=== PATIENT | female | born 1980 | race Caucasian/White ===

== ENCOUNTER 2018-09-12 10:05 | Inpatient (IN) ==
[2018-09-12] MEDS ORDERED: Ipratropium/Albuterol Neb 3 ML IH ONE (10:14)
--- NOTE | 2018-09-12 10:35 | Emergency Department Note ---
Disposition Clinical Impression: Sepsis Pneumonia involving left lung Qualifiers: Pneumonia type: due to unspecified organism Lung location: unspecified part of lung Qualified Code(s): J18.9 - Pneumonia, unspecified organism Disposition: Admitted As Inpatient Condition: Fair Forms: ED Satisfaction Letter SOB HPI - General Chief Complaint: ED Shortness of Breath/Dyspnea Stated Complaint: SOB Time Seen by Provider: 09/12/18 10:07 Source: EMS Mode of arrival: private vehicle Limitations: no limitations Nursing Notes Reviewed: Yes Vital Signs Reviewed: Yes - History of Present Illness Pt Subjective Complaint: shortness of breath Onset (ago): hour(s) (Last night - at bedtime) Context: other (worse when woke up this AM) Severity: moderate Consistency/Duration: constant Improves with: nothing Worsens with: nothing Associated symptoms: Reports: chest pain (left anterolateral - mid), pain with inspiration (in left upper back), cough ("Infrequent, dry). Denies: fever, wheezing, sputum production, orthopnea, lower extremity pain, parasthesias, palpitations, diaphoresis, nausea/vomiting, syncope, abdominal pain Treatment prior to arrival: oxygen (per EMS) Cough present: Yes Cough Description: Involuntary, Non-Productive, Dry Cough Frequency: Intermittent Sputum production: No Sputum Amount: None - Related Data Home oxygen amount: none Home Medications Medication Instructions Recorded Confirmed FLUoxetine HCl [PROzac] 20 mg PO DAILY 05/18/16 06/05/16 Previous Rx's Medication Instructions Recorded Ibuprofen [Motrin] 600 mg PO Q6HR PRN #40 tab 06/06/16 Meloxicam [Mobic] 7.5 mg PO DAILY #10 tablet 08/12/16 traMADol [Ultram] 50 mg PO Q6HR PRN #10 tablet 08/12/16 Allergies Allergy/AdvReac Type Severity Reaction Status Date / Time No Known Allergies Allergy Verified 09/12/18 10:14 All systems ED: reviewed and negative except as stated. Review of Systems: As Per HPI Constitutional: Denies: fever, chills, weakness, weight change, night sweats Eyes: Denies: vision change ENT ED: Denies: ear pain, throat pain, congestion, dysphagia Cardiovascular: Reports: as per HPI, chest pain. Denies: palpitations, dyspnea on exertion, orthopnea, edema, syncope Respiratory: Reports: as per HPI, cough, dyspnea. Denies: wheezes, hemoptysis, stridor, sputum production Gastrointestinal: Denies: abdominal pain, nausea, vomiting, diarrhea Genitourinary: Denies: dysuria Musculoskeletal: Reports: as per HPI, back pain. Denies: neck pain, joint swelling, arthralgia Integumentary: Denies: rash Neurological: Denies: headache, weakness, confusion, abnormal gait, vertigo Hematological/Lymphatic: Denies: easy bleeding, easy bruising, lymphadenopathy Past Medical History - Past Medical History Attestation: Yes The following information was validated with the patient. Source: patient Medical history: Reports: migraine Surgical history: Reports: hysterectomy Psychiatric history: Reports: anxiety, depression STRATEGY DIRECTOR history: Reports: bilateral tubal ligation, other - Social History Smoking Status: Current every day smoker Smokeless Tobacco Status: No Alcohol use: Reports: none Drug use: Reports: none Physical Exam - General Limitations: no limitations General appearance: alert, in no apparent distress, anxious - Head Head exam: atraumatic, normocephalic, normal inspection - Eye Eye exam: Present: normal appearance. Absent: scleral icterus, conjunctival injection, periorbital swelling - ENT ENT exam: mucous membranes dry - Neck Neck exam: Present: normal inspection, full ROM, trachea midline. Absent: tenderness, meningismus, lymphadenopathy - Chest Chest inspection: Present: normal inspection. Absent: tenderness - Respiratory Respiratory exam: Present: normal lung sounds bilaterally, other (splinting - mild). Absent: respiratory distress, wheezes, stridor, accessory muscle use, prolonged expiratory phase - Cardiovascular Cardiovascular exam: Present: normal rhythm, tachycardia, normal heart sounds - Abdominal Exam Abdominal exam: Present: soft, Non-Tender. Absent: distention, guarding, rebound, rigidity, ascites, mass - Extremities Exam Extremities exam: Present: normal inspection, full ROM, normal capillary refill. Absent: pedal edema, joint swelling, calf tenderness - Back Exam Back exam: Present: normal inspection, full ROM, tenderness, paraspinal tenderness (left upper - medial to scapula). Absent: CVA tenderness (R), CVA tenderness (L), vertebral tenderness, rashes - Neurological Exam Neurological exam: Present: alert, oriented X3, CN II-XII intact - Psychiatric Psychiatric exam: Present: normal affect, anxious - Skin Skin exam: Present: warm, dry, intact, normal color Course Course Narrative: Patient presents from home for evaluation of shortness of breath. She called the squad because she was having trouble breathing and pain in the left upper back with deep inspiration. The vineyard tender reports that the patient was hyperventilating. They applied oxygen, which seemed to help. They report a heart rate in the high 120s, which improved to the high 90s, upon their arrival at the ED. Upon initial evaluation of the patient she was tachypneic and tachycardic. After talking to her a few minutes about her breathing, she was able to slow down her respiratory rate. She was assisted into a gown, vitals and EKG obtained. After the initial assessment, I went back to talk to the patient again. She was once again, tachypnea, and back in the 120s. She complained of increased pain in her left upper back and now also had pain in her ankles. On exam, she is breathing very shallow with her shoulders drawn up and her feet and toes pulled back. She is very anxious. I spent several minutes talking to her again about her breathing and she was able to calm down. The pain in her back is reproducible with palpation. She states that she also is having pain in the left side of her chest. She is not sure when that pain started, but believes it was sometime this morning. She denies fever, chills, nausea, vomiting, hemoptysis, recent calf pain or swelling, recent procedures, surgeries long car trips or air travel. She has never had a DVT or PE. No known blood dyscrasias. No family history of ACS at a young age. No known coronary artery disease. She is not on hormone replacement therapy or oral contraceptives. She does smoke. Less than one pack per day. Meds and fluids ordered. Suspect pneumon ia. She is low risk for PE per well's criteria (1.5). Case discussed with Dr. Josue Valente. He will be taking over care of this patient. Vital Signs Temperature 99.1 F 09/12/18 10:11 Pulse Rate 126 09/12/18 10:11 Respiratory Rate 22 09/12/18 10:11 Blood Pressure 100/86 09/12/18 10:11 O2 Sat by Pulse Oximetry 96 09/12/18 10:11 Temperature 99.1 F 09/12/18 10:11 Pulse Rate 126 12/02/18 10:11 Respiratory Rate 22 09/12/18 10:11 Blood Pressure 100/86 09/12/18 10:11 O2 Sat by Pulse Oximetry 96 09/12/18 10:11 Oxygen Delivery Oxygen Delivery Room Air Shortness of Breath/Dyspnea - Medical Records Medical records reviewed: Yes I reviewed the patient's medical records. - Lab Data Result diagrams: 09/12/18 11:29 09/12/18 11:29 Critical Care Time Critical Care Time: Yes Total Critical Care Time: 45 Attestation: The high probability of a clinically significant, sudden or life threatening deterioration of the respiratory and cardiovascular system(s) required my full and direct attention, intervention and personal management. The aggregate critical care time was 45 minutes. This time is in addition to time spent performing reported procedures but includes the following: x Data Review and interpretation x Patient assessment and monitoring of vital signs x Documentation x Medication orders and management Attestation Statement - Attestation Attestation: I, Josue Valente, examined this patient and my medical decision-making was reviewed with the MATHEMATICAL TECHNICIAN/PA/Advanced Practice Nurse/Resident Physician. I agree with the documented findings, disposition and treatment plan as described except to the extent set forth below. 38-year-old female presents emergency Department with concerns of acute onset shortness of breath. Patient states that it started during the night and has persisted throughout the day. Patient reports subjective fever and chills at home. She is tachycardic on initial evaluation. Patient was received in sign out at the start of my shift. CTA of the chest shows left lower lobe pneumonia. Patient meets sepsis criteria. She will be admitted to the hospitalist for further care and evaluation. Denies admission to the hospital within the past 3 months.
[2018-09-12] MEDS ORDERED: Ketorolac 15 MG/ML VIAL IM ONE (10:59)
[2018-09-12] MEDS ORDERED: *HR* LORazepam 2 MG/ML VIAL IVP ONE (10:59)
[2018-09-12] MEDS ORDERED: 0.9 % Sodium Chloride 1,000 ML IVC ONE (10:59)
[2018-09-12] MEDS ORDERED: Isovue-370 500 ML INFUS..BTL IV ONE (11:10)
[2018-09-12] MEDS ORDERED: Ketorolac 15 MG/ML VIAL IVP ONE (11:20)
[2018-09-12 11:42] LABS: Hematocrit 41.7 % (35.3-44.9); Mean Corpuscular HGB Conc 33.6 g/dL (31.6-35.5); Mean Corpuscular Hemoglobin 30.6 pg (28.0-33.3); Mean Platelet Volume 10.1 fL (9.4-12.4); Platelet Count 307 K/mcL (140-400); Red Blood Count 4.58 M/mcL (3.82-4.97); Red Cell Distribution Width 14.4 % (11.5-14.5)
[2018-09-12 11:59] LABS: Lymphocytes # 0.7 K/mcL (0.6-4.6); Monocytes # 1.4 K/mcL (0.0-1.3); Neutrophils # 33.2 K/mcL (1.6-8.9); Platelet Estimate Normal (Normal)
[2018-09-12 12:01] LABS: BUN/Creatinine Ratio 19 (6-26); Blood Urea Nitrogen 18 mg/dL (6-20); Calcium 9.4 mg/dL (8.6-10.3); Carbon Dioxide 22 mEq/L (23-29); Chloride 102 mEq/L (98-107); Glucose 99 mg/dL (70-105); Osmolality,Calculated 278 (280-300); Potassium 3.8 mEq/L (3.5-5.1); Sodium 133 mEq/L (136-145); eGFR For Non-African Americans > 60 (> 60)
[2018-09-12] MEDS ORDERED: cefTRIAXone 1,000 MG in Water for inj. (sterile) 20 ML 10 ML IVP ONE (13:06)
[2018-09-12] MEDS ORDERED: Azithromycin 500 MG in D5% in Water 250 ML IVPB STA (13:06)
[2018-09-12] MEDS ORDERED: Naloxone 0.4 MG/ML INJ IVP PRN (13:39)
--- NOTE | 2018-09-12 13:46 | Internal Med History&Physical ---
Date of Encounter: 09/12/18 Time of Encounter: 13:42 Internal Medicine - H&P: HPI Chief complaint: SOB Admitted From: Home Plans for Post Hospital Care: at Home History of present illness: Ms. Mckeon is a 38 year old female with history of questionable anxiety came to ER with complaint of shortness of breath, chest pain and left upper back with deep inspiration. Patient notices cough chills for 2-3 days and has been progressively worse. In ER patient was found to be tachypneic tachycardic with low grade temperature 99.1. Lab with white count 35.3 with left shift, mild hyponatremia 133, slight raised d-dimer therefore CT chest ordered with finding of left-sided pneumonia but no PE. Patient was highly anxious therefore 1 mg Ativan was given. Blood culture was drawn in the ER and a started Rocephin and Zithromax. Patient complained of chills nausea but denies fever headache dizziness abdominal pain urinary or bowel complaint. Past Med Surg Social Fam HX - Past Medical History Medical history: migraine Additional medical history: lower back pain Psychiatric history: anxiety, depression - Past Surgical History Surgical History: hysterectomy Additional surgical history: D & C , ABLASION. Partial hysterectomy - Social History Smoking Status: Current every day smoker Smokeless Tobacco Status: No Alcohol use: none Drug use: none Internal Medicine - H&P: Meds FLUoxetine HCl [PROzac] 20 mg PO DAILY 05/18/16 [History] Ibuprofen [Motrin] 600 mg PO Q6HR PRN #40 tab 06/06/16 [Rx] Meloxicam [Mobic] 7.5 mg PO DAILY #10 tablet 08/12/16 [Rx] traMADol [Ultram] 50 mg PO Q6HR PRN #10 tablet 08/12/16 [Rx] Allergy/AdvReac Type Severity Reaction Status Date / Time No Known Allergies Allergy Verified 09/12/18 10:14 All Systems PM: A 10-system review of systems was performed and is negative for pertinent findings except as documented above in the HPI. - Constitutional Vitals: Temp Pulse Resp BP Pulse Ox 99.1 F 124 26 117/73 98 09/12/18 10:11 09/12/18 11:33 09/12/18 11:33 09/12/18 11:33 09/12/18 11:33 Exam: General appearance: No acute distress, very sleepy but arousable as under the effect of sedating medicine Head exam: Atraumatic Eye exam: EOMI, PERRLA ENT exam: Moist oral mucosa Neck nontender, supple Respiratory exam: Crepitation left lower lobe but no wheezing. Cardiovascular exam: Tachycardia but normal rhythm. no systolic murmur Abdominal exam: Soft, nontender, nondistended, positive bowel sounds Extremities exam: No calf tenderness, no pedal edema Present: Skin-no rash, warm, dry, intact Neurological exam: CN II-XII intact, no focal deficits. No facial droop. Internal Med - H&P Results - Labs CBC & Chem 7: 09/12/18 11:29 09/12/18 11:29 Labs: Short CBC 09/12/18 Range/Units 11:29 WBC 35.3 H* (4.3-11.1) K/mcL Hgb 14.0 (11.5-15.4) g/dL Hct 41.7 (35.3-44.9) % Plt Count 307 (140-400) K/mcL Neutrophils # 33.2 H (1.6-8.9) K/mcL BMP 09/12/18 11:29 Sodium 133 L Potassium 3.8 Chloride 102 Carbon Dioxide 22 L BUN 18 Creatinine 0.96 Glucose 99 Calcium 9.4 - Impressions ITS Impressions Chest X-Ray 09/12/18 10:15 IMPRESSION: Left perihilar posterior consolidation most consistent with pneumonia. RECOMMENDATIONS: Post treatment chest radiograph to ensure resolution. D/ / Jennifer Gerard MD / Jennifer Gerard MD Interpreting Provider: Jennifer Gerard MD Chest CTA 09/12/18 11:10 IMPRESSION: No evidence of pulmonary embolism or acute pulmonary abnormality. Left lower lobe pneumonia with left reactive hilar adenopathy. D/ / aR Price MD / Ra Price MD Interpreting Provider: Ra Price MD - Assessment and plan (1) Pneumonia involving left lung Current Visit: Yes Status: Acute Assessment and plan: Highly elevated white count with SIRS but lactic acid normal. Blood culture drawn in the ER. Rocephin and Zithromax started in ER and will continue. Incentive spirometry, oxygen when necessary, DuoNeb when necessary started, overnight pulse ox. Will also consider a sputum culture Qualifiers: Pneumonia type: due to unspecified organism Lung location: unspecified part of lung Qualified Code(s): J18.9 - Pneumonia, unspecified organism (2) Leukocytosis Current Visit: Yes Status: Acute Assessment and plan: Most likely due to above. Blood in the sputum culture ordered. Continue home medicine and continue to monitor. Qualifiers: Leukocytosis type: unspecified Qualified Code(s): D72.829 - Elevated white blood cell count, unspecified (3) Smoker Current Visit: Yes Status: Acute Assessment and plan: Smoking cessation education. Nicotine patch (4) Anxiety and depression Current Visit: Yes Status: Acute Assessment and plan: No suicidal or homicidal thoughts or plan. Continue home medicine. 1 dose of Ativan given in the ER as mentioned above. (5) DVT prophylaxis Current Visit: Yes Status: Acute Assessment and plan: SCDs - Time Spent With Patient Total time spent is greater than 50% in coordination of care (as documented) at patient's floor/unit and/or counseling patient:
[2018-09-12] MEDS ORDERED: Ipratropium/Albuterol Neb 3 ML IH PRN (13:50)
[2018-09-12] MEDS ORDERED: Nicotine 14 MG PATCH.TD24 TD PRN (13:51)
[2018-09-12] MEDS ORDERED: Acetaminophen 325 MG TABLET PO ONE (22:38)
[2018-09-13 04:41] LABS: Basophils % 0.2 %; Eosinophils % 0.1 %; Immature Granulocytes % 0.9 % (0-4); Red Cell Distribution Width 14.6 % (11.5-14.5)
[2018-09-13 04:42] LABS: Basophils # 0.1 K/mcL (0.0-0.2); Hemoglobin 12.8 g/dL (11.5-15.4); Lymphocytes # 2.5 K/mcL (0.6-4.6); Mean Corpuscular HGB Conc 33.7 g/dL (31.6-35.5); Mean Platelet Volume 10.6 fL (9.4-12.4); Monocytes # 1.2 K/mcL (0.0-1.3); Monocytes % 3.8 %; Platelet Count 274 K/mcL (140-400); Red Blood Count 4.13 M/mcL (3.82-4.97)
[2018-09-13 05:04] LABS: BUN/Creatinine Ratio 22 (6-26); Blood Urea Nitrogen 21 mg/dL (6-20); Calcium 8.7 mg/dL (8.6-10.3); Carbon Dioxide 23 mEq/L (23-29); Chloride 107 mEq/L (98-107); Glucose 102 mg/dL (70-105); Osmolality,Calculated 283 (280-300); Potassium 4.2 mEq/L (3.5-5.1); Sodium 135 mEq/L (136-145); eGFR For Non-African Americans > 60 (> 60)
[2018-09-13] MEDS ORDERED: Acetaminophen 325 MG TABLET PO ONE (05:23)
[2018-09-13 05:46] LABS: Platelet Estimate Normal (Normal); Reactive Lymphocytes Present (Not Present)
--- NOTE | 2018-09-13 08:31 | Internal Med Progress Note ---
Hospitalist Progress Note - Encounter Date of Encounter: 09/13/18 Time of Encounter: 08:28 - Subjective Interval History: Patient feeling slight better and shortness of breath is still has dry cough and not able to bring up the sputum. Review of the lab with trending down white count but is still significant elevated. Complain of fatigue, tiredness and generalized weakness, cough. Denies headache dizziness chest pain abdominal pain urinary or bowel complaint - Exam Vitals: Temp Pulse Resp BP Pulse Ox 99.0 F 86 18 98/61 99 09/13/18 07:35 09/13/18 07:35 09/13/18 07:35 09/13/18 07:35 09/13/18 07:35 Exam: General appearance: No acute distress, alert awake oriented. 2 L oxygen by nasal cannula. Respiratory exam: Crepitation left lower lobe but no wheezing. Cardiovascular exam: Regular rate and rhythm no systolic murmur Abdominal exam: Soft, nontender, nondistended, positive bowel sounds Neurological exam: Grossly intact - Assessment and Plan (1) Pneumonia involving left lung Current Visit: Yes Status: Acute Assessment and Plan: Trending down white count but is still significantly elevated. On admission Highly elevated white count with SIRS but lactic acid normal. Blood culture with no growth. Rocephin and Zithromax started in ER and will continue. Incentive spirometry, oxygen when necessary, DuoNeb when necessary started, overnight pulse ox. Ordered sputum culture. Plan for discharge and 102 days if continued to improve clinically (2) Leukocytosis Current Visit: Yes Status: Acute Assessment and Plan: Most likely due to above. Continue to monitor. (3) Smoker Current Visit: Yes Status: Acute Assessment and Plan: Smoking cessation education. Nicotine patch (4) Anxiety and depression Current Visit: Yes Status: Acute Assessment and Plan: No suicidal or homicidal thoughts or plan. Today patient told that she had stopped taking fluoxetine for her depression 6 years ago and not taking any antidepressant medicine currently. (5) DVT prophylaxis Current Visit: Yes Status: Acute Assessment and Plan: SCDs. Early ambulation - Time Spent with Patient Total time spent is greater than 50% in coordination of care (as documented) at patient's floor/unit and/or counseling patient: less than 15 minutes Plan of Care Discussed with: patient Internal Medicine: Result - Labs CBC & Chem 7: 09/13/18 04:12 09/13/18 04:12 Labs: Short CBC 09/12/18 09/13/18 Range/Units 11:29 04:12 WBC 35.3 H* 31.0 H* (4.3-11.1) K/mcL Hgb 14.0 12.8 (11.5-15.4) g/dL Hct 41.7 38.0 (35.3-44.9) % Plt Count 307 274 (140-400) K/mcL Neutrophils # 33.2 H 27.0 H (1.6-8.9) K/mcL BMP 09/12/18 09/13/18 11:29 04:12 Sodium 133 L 135 L Potassium 3.8 4.2 Chloride 102 107 Carbon Dioxide 22 L 23 BUN 18 21 H Creatinine 0.96 0.95 Glucose 99 102 Calcium 9.4 8.7 - ABG Interpretation ABG results: PT/INR, D-dimer D-Dimer 593 ng/mLFEU (0-500) H 09/12/18 10:32 - Impressions Impressions Chest X-Ray 09/12/18 10:15 IMPRESSION: Left perihilar posterior consolidation most consistent with pneumonia. RECOMMENDATIONS: Post treatment chest radiograph to ensure resolution. D/ / Jennifer Gerard MD / Jennifer Gerard MD Interpreting Provider: Jennifer Gerard MD Chest CTA 09/12/18 11:10 IMPRESSION: No evidence of pulmonary embolism or acute pulmonary abnormality. Left lower lobe pneumonia with left reactive hilar adenopathy. D/ / Ra Price MD / Ra Price MD Interpreting Provider: Ra Price MD Consult Discharge Plan - Plan Referrals: NONE,PCP [Primary Care Provider] - (1) Pneumonia involving left lung Qualifiers: Pneumonia type: due to unspecified organism Lung location: unspecified part of lung Qualified Code(s): J18.9 - Pneumonia, unspecified organism (2) Leukocytosis Qualifiers: Leukocytosis type: unspecified Qualified Code(s): D72.829 - Elevated white blood cell count, unspecified
[2018-09-13] MEDS: cefTRIAXone 1,000 MG in Water for inj. (sterile) 20 ML 10 ML IVP SCH (08:41)
[2018-09-13] MEDS: Azithromycin 500 MG in D5% in Water 250 ML IVPB SCH (08:42)
[2018-09-13] MEDS: *HR* LORazepam 0.5 MG TABLET PO PRN ×2 (12:00→21:43)
[2018-09-13] MEDS ORDERED: Azithromycin 500 MG in D5% in Water 250 ML IVPB SCH (14:00)
--- NOTE | 2018-09-13 17:49 | Electrocardiograph Report ---
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
--- NOTE | 2018-09-13 17:51 | Electrocardiograph Report ---
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
[2018-09-14] MEDS ORDERED: Acetaminophen 325 MG TABLET PO PRN (03:30)
[2018-09-14 07:15] VITALS: BP 104/67
[2018-09-14 08:01] LABS: Basophils % 0.3 %; Eosinophils # 0.1 K/mcL (0.0-0.6); Eosinophils % 0.8 %; Hematocrit 35.4 % (35.3-44.9); Hemoglobin 11.6 g/dL (11.5-15.4); Immature Granulocytes % 0.6 % (0-4); Lymphocytes # 2.4 K/mcL (0.6-4.6); Lymphocytes % 16.9 %; Mean Corpuscular HGB Conc 32.8 g/dL (31.6-35.5); Mean Corpuscular Hemoglobin 30.4 pg (28.0-33.3); Mean Corpuscular Volume 92.7 fL (83.0-100.0); Mean Platelet Volume 10.8 fL (9.4-12.4); Monocytes # 0.7 K/mcL (0.0-1.3); Monocytes % 4.8 %; Platelet Count 234 K/mcL (140-400); Red Blood Count 3.82 M/mcL (3.82-4.97); Red Cell Distribution Width 14.8 % (11.5-14.5); Segmented Neutrophils % 76.6 %
[2018-09-14] MEDS: Azithromycin 500 MG in D5% in Water 250 ML IVPB SCH (08:44)
[2018-09-14] MEDS: cefTRIAXone 1,000 MG in Water for inj. (sterile) 20 ML 10 ML IVP SCH (08:45)
[2018-09-14] MEDS ORDERED: Cefdinir 300 MG CAPSULE PO SCH (09:00)
[2018-09-14] MEDS ORDERED: Azithromycin 250 MG TABLET PO SCH (09:00)
[2018-09-14] MEDS: *HR* LORazepam 0.5 MG TABLET PO PRN (11:18)
--- NOTE | 2018-09-14 14:17 | Discharge Summary ---
- NOTES TO OUTPATIENT PROVIDER Notes to Outpatient Provider: Follow-up with PCP in 2 days-follow final blood culture report, evaluate for her anxiety. Complete the antibiotic course. Albuterol 1-2 puff every 4 hours as needed Orders not resulted at time of discharge: Pending orders 09/12/18 11:29 Culture,Blood [BC] Stat 09/12/18 13:50 Bedside Spirometry Evaluation [EVAL] Routine 09/12/18 13:52 Sputum Culture [Culture,Sputum with Gram Stain] [RM] Routine 09/15/18 04:00 BMP [Basic Metabolic Panel] Routine Date of Encounter: 09/14/18 Time of Encounter: 14:16 - Discharge Diagnosis (1) Pneumonia involving left lung Priority: Primary Status: Acute Assessment and Plan: With leukocytosis. Trending down white count significantly. Patient also has clinical improvement therefore IV antibiotic stopped and will discharge patient on oral antibiotic Zithromax 250 mg daily for 2 more days and Omnicef 300 mg by mouth twice a day for 5 days On admission Highly elevated white count with SIRS but lactic acid normal. Blood culture with no growth. Rocephin and Zithromax started in ER . Qualifiers: Pneumonia type: due to unspecified organism Lung location: unspecified part of lung Qualified Code(s): J18.9 - Pneumonia, unspecified organism (2) Leukocytosis Priority: Primary Status: Acute Assessment and Plan: Most likely due to above. Trending down significantly. Qualifiers: Leukocytosis type: unspecified Qualified Code(s): D72.829 - Elevated white blood cell count, unspecified (3) Smoker Priority: Secondary Status: Acute Assessment and Plan: Smoking cessation education. Resources made available. Patient will discuss with her primary care physician (4) Anxiety and depression Priority: Secondary Status: Acute Assessment and Plan: No suicidal or homicidal thoughts or plan. patient told that she had stopped taking fluoxetine for her depression 6 years ago and not taking any antidepressant or antianxiety medicine currently. While in the hospital patient had anxiety attack got better with 1 dose of Ativan and also after nicotine patch placement. Advised to discuss with her primary care physician for further management Hospital course: Ms. Mckeon is a 38 year old female patient got admitted for shortness of breath and cough and diagnosed left lung pneumonia. IV to oral antibiotic Rocephin and Zithromax as started initially. Please see details in diagnosis section of discharge summary. At the time of discharge patient is hemodynamically and psychological stable, not requiring oxygen, ambulating well though feel tired, tolerating oral diet. Discharge discussed with: patient, nurse Time spent discussing smoking cessation with patient: 3 to 10 minutes - Time Spent with Patient Total time spent providing and/or coordinating discharge services: Less than 30 minutes - Discharge Medications Home Medications: No Known Home Drugs 09/13/18 [History] Allergies/Adverse Reactions: Allergy/AdvReac Type Severity Reaction Status Date / Time No Known Allergies Allergy Verified 09/12/18 10:14 Date of admission: 09/12/18 13:39 Primary care physician: PCP NONE Consults: 09/12/18 17:26 Consult to Nutrition [CONS] Routine Comment: Consulting Provider: NUTRITION Reason for Dietary Consult: MST Score Consult to Back Strip Machine Operator [CONS] Routine Reason for SW Consult: Patient has financial concerns about admission - Constitutional Vitals: Temp Pulse Resp BP Pulse Ox 97.6 F 88 16 104/67 100 09/14/18 10:51 09/14/18 10:51 09/14/18 10:51 09/14/18 10:51 09/14/18 10:51 Exam: General appearance: No acute distress, A&O X 3 Head exam: Atraumatic Eye exam: EOMI, PERRLA ENT exam: Moist oral mucosa Neck nontender, supple Respiratory exam: Left lower lobe crepitation-improving Cardiovascular exam: Regular rate and rhythm, no systolic murmur Abdominal exam: Soft, nontender, nondistended, positive bowel sounds Extremities exam: No calf tenderness, no pedal edema Present: Skin-no rash, warm, dry, intact Neurological exam: Grossly intact - Patient Status Disposition: Home, Self-Care Condition: Fair Overall status at discharge: patient is progressing back to baseline - Discharge Instructions Follow Up With: NONE,PCP [Primary Care Provider] - - Diet and Activity Activity: increase activity as tolerated Diet: advance to your usual diet
[2018-09-15] MEDS ORDERED: Azithromycin 250 MG TABLET PO SCH (09:00)
== END 2018-09-14 17:35 | disposition home or self-care (01) | DRG 139 ==
LOC: EMEROOARM 10:05 → 2ANU 10:05
PROVIDERS: ADMIT General Practice; ATTEND General Practice

== ENCOUNTER 2019-09-08 18:22 | Observation (INO) ==
[2019-09-08] MEDS ORDERED: methylPREDNISolone 125 MG/2 ML VIAL IVP ONE (18:41)
[2019-09-08] MEDS ORDERED: Ipratropium/Albuterol Neb 3 ML IH ONE (18:41)
[2019-09-08 18:56] LABS: Basophils # 0.1 K/mcL (0.0-0.2); Basophils % 0.6 %; Eosinophils # 0.1 K/mcL (0.0-0.6); Eosinophils % 0.7 %; Hematocrit 35.9 % (35.3-44.9); Hemoglobin 12.5 g/dL (11.5-15.4); Immature Granulocytes % 0.5 % (0-4); Lymphocytes # 1.5 K/mcL (0.6-4.6); Lymphocytes % 13.5 %; Mean Corpuscular HGB Conc 34.8 g/dL (31.6-35.5); Mean Corpuscular Hemoglobin 32.6 pg (28.0-33.3); Mean Corpuscular Volume 93.5 fL (83.0-100.0); Mean Platelet Volume 10.4 fL (9.4-12.4); Monocytes # 0.4 K/mcL (0.0-1.3); Monocytes % 3.2 %; Platelet Count 346 K/mcL (140-400); Red Blood Count 3.84 M/mcL (3.82-4.97); Red Cell Distribution Width 14.6 % (11.5-14.5); Segmented Neutrophils % 81.5 %
[2019-09-08] MEDS ORDERED: Isovue-370 500 ML BOTTLE IVP ONE (19:17)
[2019-09-08 19:22] LABS: BUN/Creatinine Ratio 11 (6-26); Blood Urea Nitrogen 10 mg/dL (6-20); Calcium 8.8 mg/dL (8.6-10.3); Carbon Dioxide 21 mEq/L (23-29); Chloride 110 mEq/L (98-107); Glucose 120 mg/dL (70-105); Osmolality,Calculated 290 (280-300); Sodium 140 mEq/L (136-145); Troponin I < 0.03 ng/mL (< 0.04); eGFR For African Americans > 60 (> 60); eGFR For Non-African Americans > 60 (> 60)
[2019-09-08] MEDS ORDERED: Furosemide 40 MG in 0.9 % Sodium Chloride 50 ML IV STA (21:19)
[2019-09-08] MEDS ORDERED: Furosemide 40 MG/4 ML VIAL IVP ONE (21:35)
[2019-09-08 21:43] LABS: ABG Base Excess -1 mEq/L (-2 to 3); ABG HCO3 23 mEq/L (21-27); ABG Oxygen Saturation 82 % (95-98); ABG PCO2 34 mmHg (35-45); ABG PH 7.43 pH Units (7.32-7.45); ABG PO2 45 mmHg (85-104); ABG TCO2 24 mEq/L (20-26)
[2019-09-08 22:46] LABS: Bilirubin,Urine Negative (Negative); Blood,Urine Negative (Negative); Clarity,Urine Clear (Clear); Color,Urine Yellow (Yellow); Glucose,Urine (UA) Normal (Normal); Ketones,Urine Negative (Negative); Leukocyte Esterase,Urine Negative (Negative); Nitrite,Urine Negative (Negative); Protein,Urine Negative (Neg-Trace); Urobilinogen,Urine Normal (Normal)
[2019-09-08 22:57] LABS: Amphetamine Screen,Urine Negative ng/mL (Cutoff=1000); Barbiturate Screen,Urine Negative ng/mL (Cutoff=200); Benzodiazepines Screen,Urine Negative ng/mL (Cutoff=200); Cannabinoid Screen,Urine Negative ng/mL (Cutoff = 50); Cocaine Screen,Urine Negative ng/mL (Cutoff= 300); Opiate Screen,Urine Negative ng/mL (Cutoff=300); Phencyclidine Screen,Urine Negative ng/mL (Cutoff=25)
[2019-09-08] MEDS ORDERED: Naloxone 0.4 MG/ML INJ IVP PRN (23:15)
[2019-09-08] MEDS ORDERED: Albuterol 2.5 MG/3 ML NEBULIZER IH PRN (23:42)
[2019-09-08] MEDS ORDERED: Azithromycin 500 MG in 0.9 % Sodium Chloride 250 ML IVPB SCH (23:45)
[2019-09-09] MEDS: Ipratropium/Albuterol Neb 3 ML IH SCH ×4 (03:53→23:56)
[2019-09-09] MEDS: Acetaminophen 325 MG TABLET PO PRN ×2 (05:06→20:54)
[2019-09-09] MEDS: *HR* Heparin 5,000 UNIT/ML VIAL SQ SCH ×2 (05:06→16:51)
[2019-09-09 06:51] LABS: Hematocrit 37.1 % (35.3-44.9); Hemoglobin 12.9 g/dL (11.5-15.4); Mean Corpuscular HGB Conc 34.8 g/dL (31.6-35.5); Mean Corpuscular Hemoglobin 31.7 pg (28.0-33.3); Mean Corpuscular Volume 91.2 fL (83.0-100.0); Mean Platelet Volume 10.7 fL (9.4-12.4); Platelet Count 345 K/mcL (140-400); Red Blood Count 4.07 M/mcL (3.82-4.97); Red Cell Distribution Width 14.5 % (11.5-14.5); White Blood Count 14.6 K/mcL (4.3-11.1)
[2019-09-09 07:07] LABS: BUN/Creatinine Ratio 14 (6-26); Blood Urea Nitrogen 16 mg/dL (6-20); Calcium 9.1 mg/dL (8.6-10.3); Carbon Dioxide 23 mEq/L (23-29); Chloride 107 mEq/L (98-107); Glucose 147 mg/dL (70-105); Osmolality,Calculated 292 (280-300); Sodium 139 mEq/L (136-145); eGFR For African Americans > 60 (> 60); eGFR For Non-African Americans 54 (> 60)
[2019-09-09] MEDS: Azithromycin 500 MG in 0.9 % Sodium Chloride 250 ML IVPB SCH (09:17)
[2019-09-09] MEDS: predniSONE 20 MG TABLET PO SCH (09:18)
[2019-09-09 12:28] LABS: Adenovirus Not Detected (Not Detect); Bordetella Pertussis Not Detected (Not Detect); Chlamydophila pneumoniae Not Detected (Not Detect); Coronavirus 229E Not Detected (Not Detect); Coronavirus HKU1 Not Detected (Not Detect); Coronavirus NL63 Not Detected (Not Detect); Coronavirus OC43 Not Detected (Not Detect); Human Metapneumovirus Not Detected (Not Detect); Human Rhinovirus/Enterovirus Not Detected (Not Detect); Influenza A Subtype 2009 H1 Not Detected (Not Detect); Influenza A Untypeable Not Detected (Not Detect); Influenza B Not Detected (Not Detect); Mycoplasma pneumoniae Not Detected (Not Detect); Parainfluenza Virus 1 Not Detected (Not Detect); Parainfluenza Virus 2 Not Detected (Not Detect); Parainfluenza Virus 3 Not Detected (Not Detect); Parainfluenza Virus 4 Not Detected (Not Detect); Respiratory Syncytial Virus Not Detected (Not Detect)
[2019-09-09] MEDS: Nicotine 21 MG PATCH.TD24 TD SCH (23:24)
[2019-09-10 04:15] LABS: Hematocrit 32.3 % (35.3-44.9); Hemoglobin 11.4 g/dL (11.5-15.4); Mean Corpuscular HGB Conc 35.3 g/dL (31.6-35.5); Mean Corpuscular Hemoglobin 32.4 pg (28.0-33.3); Mean Corpuscular Volume 91.8 fL (83.0-100.0); Mean Platelet Volume 10.9 fL (9.4-12.4); Platelet Count 336 K/mcL (140-400); Red Blood Count 3.52 M/mcL (3.82-4.97); Red Cell Distribution Width 15.1 % (11.5-14.5); White Blood Count 27.6 K/mcL (4.3-11.1)
[2019-09-10] MEDS: Ipratropium/Albuterol Neb 3 ML IH SCH ×2 (04:40→10:31)
[2019-09-10] MEDS: *HR* Heparin 5,000 UNIT/ML VIAL SQ SCH ×2 (05:28→18:22)
[2019-09-10] MEDS: Acetaminophen 325 MG TABLET PO PRN ×2 (06:49→21:16)
[2019-09-10 09:04] LABS: Triiodothyronine (T3) Free 2.78 pg/mL (2.50-3.90)
[2019-09-10] MEDS: Azithromycin 500 MG in 0.9 % Sodium Chloride 250 ML IVPB SCH (09:35)
[2019-09-10] MEDS: predniSONE 20 MG TABLET PO SCH (09:35)
[2019-09-10] MEDS: Nicotine 21 MG PATCH.TD24 TD SCH (09:36)
[2019-09-10] MEDS: Metoprolol XL (24 HR) Succ 25 MG TAB.ER.24H PO SCH (13:13)
[2019-09-10] MEDS: Furosemide 40 MG/4 ML VIAL IVP SCH ×2 (13:13→21:16)
[2019-09-10] MEDS: cefTRIAXone 1,000 MG in 0.9 % Sodium Chloride Mini Bag 100 ML IVPB SCH (13:14)
[2019-09-10] MEDS: Levalbuterol Neb 0.63 MG/3 ML IH SCH ×2 (15:50→21:33)
[2019-09-11] MEDS: Levalbuterol Neb 0.63 MG/3 ML IH SCH ×4 (03:59→22:29)
[2019-09-11 05:15] LABS: Basophils % 0.2 %; Eosinophils % 0.1 %; Hematocrit 36.6 % (35.3-44.9); Hemoglobin 12.7 g/dL (11.5-15.4); Immature Granulocytes % 0.8 % (0-4); Lymphocytes # 2.4 K/mcL (0.6-4.6); Lymphocytes % 12.2 %; Mean Corpuscular HGB Conc 34.7 g/dL (31.6-35.5); Mean Corpuscular Hemoglobin 31.7 pg (28.0-33.3); Mean Corpuscular Volume 91.3 fL (83.0-100.0); Mean Platelet Volume 10.7 fL (9.4-12.4); Monocytes # 0.7 K/mcL (0.0-1.3); Monocytes % 3.5 %; Neutrophils # 16.5 K/mcL (1.6-8.9); Platelet Count 374 K/mcL (140-400); Red Blood Count 4.01 M/mcL (3.82-4.97); Red Cell Distribution Width 15.1 % (11.5-14.5); Segmented Neutrophils % 83.2 %; White Blood Count 19.8 K/mcL (4.3-11.1)
[2019-09-11 05:27] LABS: BUN/Creatinine Ratio 26 (6-26); Blood Urea Nitrogen 27 mg/dL (6-20); Calcium 9.1 mg/dL (8.6-10.3); Carbon Dioxide 29 mEq/L (23-29); Chloride 102 mEq/L (98-107); Glucose 115 mg/dL (70-105); Osmolality,Calculated 294 (280-300); Potassium 3.8 mEq/L (3.5-5.1); Sodium 139 mEq/L (136-145); eGFR For African Americans > 60 (> 60); eGFR For Non-African Americans 60 (> 60)
[2019-09-11] MEDS: *HR* Heparin 5,000 UNIT/ML VIAL SQ SCH ×2 (05:56→17:18)
[2019-09-11] MEDS: cefTRIAXone 1,000 MG in 0.9 % Sodium Chloride Mini Bag 100 ML IVPB SCH (07:48)
[2019-09-11] MEDS: Nicotine 21 MG PATCH.TD24 TD SCH (07:49)
[2019-09-11] MEDS: predniSONE 20 MG TABLET PO SCH (07:49)
[2019-09-11] MEDS: Metoprolol XL (24 HR) Succ 25 MG TAB.ER.24H PO SCH (07:49)
[2019-09-11] MEDS: Furosemide 40 MG/4 ML VIAL IVP SCH ×2 (07:49→20:23)
[2019-09-11] MEDS: Azithromycin 500 MG in 0.9 % Sodium Chloride 250 ML IVPB SCH (08:35)
[2019-09-12] MEDS: Levalbuterol Neb 0.63 MG/3 ML IH SCH ×3 (03:53→15:57)
[2019-09-12] MEDS: *HR* Heparin 5,000 UNIT/ML VIAL SQ SCH (05:18)
[2019-09-12 05:27] LABS: Hematocrit 41.6 % (35.3-44.9); Mean Corpuscular HGB Conc 34.4 g/dL (31.6-35.5); Mean Corpuscular Hemoglobin 31.4 pg (28.0-33.3); Mean Corpuscular Volume 91.2 fL (83.0-100.0); Mean Platelet Volume 10.4 fL (9.4-12.4); Platelet Count 421 K/mcL (140-400); Red Blood Count 4.56 M/mcL (3.82-4.97); White Blood Count 17.9 K/mcL (4.3-11.1)
[2019-09-12 05:39] LABS: Hemoglobin 14.3 g/dL (11.5-15.4)
[2019-09-12 06:05] LABS: BUN/Creatinine Ratio 31 (6-26); Blood Urea Nitrogen 32 mg/dL (6-20); Calcium 9.5 mg/dL (8.6-10.3); Carbon Dioxide 29 mEq/L (23-29); Chloride 100 mEq/L (98-107); Glucose 108 mg/dL (70-105); Osmolality,Calculated 295 (280-300); Sodium 139 mEq/L (136-145); eGFR For African Americans > 60 (> 60); eGFR For Non-African Americans > 60 (> 60)
[2019-09-12] MEDS: Nicotine 21 MG PATCH.TD24 TD SCH (11:23)
[2019-09-12] MEDS: Metoprolol XL (24 HR) Succ 25 MG TAB.ER.24H PO SCH (11:23)
[2019-09-12] MEDS: Furosemide 40 MG/4 ML VIAL IVP SCH (11:23)
[2019-09-12] MEDS: predniSONE 20 MG TABLET PO SCH (11:23)
[2019-09-12] MEDS: cefTRIAXone 1,000 MG in 0.9 % Sodium Chloride Mini Bag 100 ML IVPB SCH (11:25)
[2019-09-12] MEDS: Azithromycin 500 MG in 0.9 % Sodium Chloride 250 ML IVPB SCH (11:26)
[2019-09-12 12:10] VITALS: BP 115/78
== END 2019-09-12 17:28 | disposition home or self-care (01) ==
LOC: 2ANU 18:22 → EMEROOARM 18:22 → SUATTDRO 21:53 → 2ANU 22:30
PROVIDERS: ADMIT Internal Medicine; ATTEND Internal Medicine

== ENCOUNTER 2020-05-29 19:04 | Observation (INO) ==
[2020-05-29 20:37] LABS: Basophils # 0.1 K/mcL (0.0-0.2); Basophils % 0.4 %; Eosinophils # 0.1 K/mcL (0.0-0.6); Eosinophils % 0.6 %; Hematocrit 38.2 % (35.3-44.9); Hemoglobin 12.9 g/dL (11.5-15.4); Immature Granulocytes % 0.3 % (0-4); Lymphocytes # 1.3 K/mcL (0.6-4.6); Lymphocytes % 9.5 %; Mean Corpuscular HGB Conc 33.8 g/dL (31.6-35.5); Mean Corpuscular Hemoglobin 30.7 pg (28.0-33.3); Mean Platelet Volume 9.8 fL (9.4-12.4); Monocytes # 0.4 K/mcL (0.0-1.3); Monocytes % 2.8 %; Platelet Count 296 K/mcL (140-400); Segmented Neutrophils % 86.4 %; White Blood Count 13.9 K/mcL (4.3-11.1)
[2020-05-29] MEDS ORDERED: 0.9 % Sodium Chloride 1,000 ML IVC ONE ×2 (20:45→22:02)
[2020-05-29] MEDS ORDERED: Isovue-370 500 ML BOTTLE IVP ONE (20:45)
[2020-05-29 20:56] LABS: BUN/Creatinine Ratio 16 (6-26); Blood Urea Nitrogen 15 mg/dL (6-20); Calcium 8.8 mg/dL (8.6-10.3); Carbon Dioxide 22 mEq/L (23-29); Chloride 104 mEq/L (98-107); Glucose 96 mg/dL (70-105); Magnesium 1.7 mg/dL (1.6-2.6); Osmolality,Calculated 281 (280-300); Sodium 135 mEq/L (136-145); eGFR For African Americans > 60 (> 60); eGFR For Non-African Americans > 60 (> 60)
[2020-05-29 20:59] LABS: Troponin I 0.04 ng/mL (< 0.04)
[2020-05-29] MEDS ORDERED: Azithromycin 250 MG TABLET PO ONE (21:04)
[2020-05-29] MEDS ORDERED: Aspirin 81 MG TAB.CHEW PO ONE (21:04)
[2020-05-29 21:11] LABS: Thyroid Stimulating Hormone 0.981 mcIU/mL (0.340-5.600)
[2020-05-29 22:23] LABS: Adenovirus Not Detected (Not Detect); Coronavirus 229E Not Detected (Not Detect); Coronavirus HKU1 Not Detected (Not Detect); Coronavirus NL63 Not Detected (Not Detect); Coronavirus OC43 Not Detected (Not Detect)
[2020-05-29 22:27] LABS: Bordetella Pertussis Not Detected (Not Detect); Chlamydophila pneumoniae Not Detected (Not Detect); Human Metapneumovirus Not Detected (Not Detect); Human Rhinovirus/Enterovirus DETECTED (Not Detect); Influenza A Subtype 2009 H1 Not Detected (Not Detect); Influenza B Not Detected (Not Detect); Mycoplasma pneumoniae Not Detected (Not Detect); Parainfluenza Virus 1 Not Detected (Not Detect); Parainfluenza Virus 2 Not Detected (Not Detect); Parainfluenza Virus 3 Not Detected (Not Detect); Parainfluenza Virus 4 Not Detected (Not Detect); Respiratory Syncytial Virus Not Detected (Not Detect)
[2020-05-29] MEDS ORDERED: Naloxone 0.4 MG/ML INJ IVP PRN (23:03)
[2020-05-30] MEDS: 0.9 % Sodium Chloride 1,000 ML IVC SCH ×2 (00:18→19:52)
[2020-05-30] MEDS: Ketorolac 15 MG/ML VIAL IVP PRN ×2 (04:24→12:15)
[2020-05-30] MEDS: *HR* Heparin 5,000 UNIT/ML VIAL SQ SCH ×2 (05:40→17:16)
[2020-05-30] MEDS: Azithromycin 500 MG in D5% in Water 250 ML IVPB SCH (05:51)
[2020-05-30] MEDS: cefTRIAXone 1,000 MG in Water for inj. (sterile) 10 ML IVP SCH (07:52)
[2020-05-30] MEDS: Furosemide 20 MG TABLET PO SCH (09:59)
[2020-05-30] MEDS: Metoprolol XL (24 HR) Succ 25 MG TAB.ER.24H PO SCH (09:59)
[2020-05-30] MEDS: Levalbuterol Neb 1.25 MG/3 ML IH SCH ×3 (11:11→22:22)
[2020-05-30] MEDS ORDERED: hydrALAZINE 10 MG TABLET PO PRN (12:09)
[2020-05-30] MEDS: predniSONE 20 MG TABLET PO SCH (12:15)
[2020-05-30] MEDS: Folic Acid 1 MG TABLET PO SCH (17:35)
[2020-05-30] MEDS: Thiamine (B-1) 100 MG TABLET PO SCH (17:35)
[2020-05-31] MEDS: Levalbuterol Neb 1.25 MG/3 ML IH SCH ×4 (03:40→21:32)
[2020-05-31 05:30] LABS: Basophils % 0.1 %; Eosinophils % 0.1 %; Hematocrit 31.5 % (35.3-44.9); Immature Granulocytes % 0.5 % (0-4); Lymphocytes # 1.1 K/mcL (0.6-4.6); Lymphocytes % 7.6 %; Mean Corpuscular Hemoglobin 31.6 pg (28.0-33.3); Mean Corpuscular Volume 92.9 fL (83.0-100.0); Mean Platelet Volume 10.4 fL (9.4-12.4); Monocytes # 0.4 K/mcL (0.0-1.3); Monocytes % 2.7 %; Neutrophils # 12.4 K/mcL (1.6-8.9); Platelet Count 212 K/mcL (140-400); Red Blood Count 3.39 M/mcL (3.82-4.97); Red Cell Distribution Width 14.2 % (11.5-14.5); White Blood Count 13.9 K/mcL (4.3-11.1)
[2020-05-31 05:31] LABS: Hemoglobin 10.7 g/dL (11.5-15.4)
[2020-05-31] MEDS: *HR* Heparin 5,000 UNIT/ML VIAL SQ SCH ×2 (05:31→16:38)
[2020-05-31] MEDS: Azithromycin 500 MG in D5% in Water 250 ML IVPB SCH (05:31)
[2020-05-31 06:59] LABS: BUN/Creatinine Ratio 19 (6-26); Blood Urea Nitrogen 17 mg/dL (6-20); Calcium 8.9 mg/dL (8.6-10.3); Carbon Dioxide 22 mEq/L (23-29); Chloride 110 mEq/L (98-107); Glucose 148 mg/dL (70-105); Magnesium 1.8 mg/dL (1.6-2.6); Osmolality,Calculated 290 (280-300); Phosphorous 2.2 mg/dL (2.7-4.5); Potassium 3.8 mEq/L (3.5-5.1); Sodium 138 mEq/L (136-145); eGFR For African Americans > 60 (> 60); eGFR For Non-African Americans > 60 (> 60)
[2020-05-31] MEDS: cefTRIAXone 1,000 MG in Water for inj. (sterile) 10 ML IVP SCH (09:21)
[2020-05-31] MEDS: Furosemide 20 MG TABLET PO SCH (09:22)
[2020-05-31] MEDS: Metoprolol XL (24 HR) Succ 25 MG TAB.ER.24H PO SCH (09:22)
[2020-05-31] MEDS: Folic Acid 1 MG TABLET PO SCH (09:22)
[2020-05-31] MEDS: Thiamine (B-1) 100 MG TABLET PO SCH (09:22)
[2020-05-31] MEDS: predniSONE 20 MG TABLET PO SCH (09:22)
[2020-05-31] MEDS ORDERED: Metoprolol XL (24 HR) Succ 25 MG TAB.ER.24H PO ONE (10:26)
[2020-06-01] MEDS: Levalbuterol Neb 1.25 MG/3 ML IH SCH ×2 (03:43→09:44)
[2020-06-01] MEDS: *HR* Heparin 5,000 UNIT/ML VIAL SQ SCH (05:14)
[2020-06-01 05:38] LABS: Basophils % 0.2 %; Eosinophils % 0.1 %; Hematocrit 31.7 % (35.3-44.9); Hemoglobin 10.3 g/dL (11.5-15.4); Immature Granulocytes % 1.1 % (0-4); Lymphocytes # 1.9 K/mcL (0.6-4.6); Lymphocytes % 10.4 %; Mean Corpuscular HGB Conc 32.5 g/dL (31.6-35.5); Mean Corpuscular Hemoglobin 29.8 pg (28.0-33.3); Mean Corpuscular Volume 91.6 fL (83.0-100.0); Mean Platelet Volume 10.7 fL (9.4-12.4); Monocytes # 0.6 K/mcL (0.0-1.3); Monocytes % 3.4 %; Neutrophils # 15.5 K/mcL (1.6-8.9); Platelet Count 302 K/mcL (140-400); Red Blood Count 3.46 M/mcL (3.82-4.97); Red Cell Distribution Width 14.5 % (11.5-14.5); Segmented Neutrophils % 84.8 %; White Blood Count 18.3 K/mcL (4.3-11.1)
[2020-06-01 06:22] LABS: BUN/Creatinine Ratio 24 (6-26); Blood Urea Nitrogen 24 mg/dL (6-20); Calcium 8.7 mg/dL (8.6-10.3); Chloride 110 mEq/L (98-107); Glucose 121 mg/dL (70-105); Magnesium 1.8 mg/dL (1.6-2.6); Osmolality,Calculated 291 (280-300); Potassium 4.3 mEq/L (3.5-5.1); Sodium 138 mEq/L (136-145); eGFR For African Americans > 60 (> 60); eGFR For Non-African Americans > 60 (> 60)
[2020-06-01 06:29] LABS: Carbon Dioxide 22 mEq/L (23-29)
[2020-06-01] MEDS: Folic Acid 1 MG TABLET PO SCH (07:16)
[2020-06-01] MEDS: predniSONE 20 MG TABLET PO SCH (07:17)
[2020-06-01] MEDS: Thiamine (B-1) 100 MG TABLET PO SCH (07:17)
[2020-06-01] MEDS: Furosemide 20 MG TABLET PO SCH (07:17)
[2020-06-01] MEDS: cefTRIAXone 1,000 MG in Water for inj. (sterile) 10 ML IVP SCH (07:21)
[2020-06-01] MEDS ORDERED: Metoprolol XL (24 HR) Succ 25 MG TAB.ER.24H PO SCH (09:00)
[2020-06-01] MEDS ORDERED: Azithromycin 250 MG TABLET PO SCH (09:00)
[2020-06-01 11:09] VITALS: BP 122/82
== END 2020-06-01 14:09 | disposition home health service (06) ==
LOC: EMEROOARM 19:04 → 3BNU 19:04 → SUATTDRO 22:37 → 3BNU 23:11
PROVIDERS: ADMIT Family Medicine; ATTEND Internal Medicine

== ENCOUNTER 2020-12-17 22:31 | Observation (INO) ==
[2020-12-17 23:47] LABS: Basophils # 0.1 K/mcL (0.0-0.2); Basophils % 0.5 %; Eosinophils # 0.2 K/mcL (0.0-0.6); Eosinophils % 1.4 %; Hematocrit 35.6 % (35.3-44.9); Hemoglobin 11.5 g/dL (11.5-15.4); Immature Granulocytes % 0.5 % (0-4); Lymphocytes % 15.1 %; Mean Corpuscular HGB Conc 32.3 g/dL (31.6-35.5); Mean Corpuscular Hemoglobin 29.1 pg (28.0-33.3); Mean Corpuscular Volume 90.1 fL (83.0-100.0); Mean Platelet Volume 10.4 fL (9.4-12.4); Monocytes # 0.4 K/mcL (0.0-1.3); Monocytes % 3.3 %; Neutrophils # 10.4 K/mcL (1.6-8.9); Platelet Count 261 K/mcL (140-400); Red Blood Count 3.95 M/mcL (3.82-4.97); Red Cell Distribution Width 15.3 % (11.5-14.5); Segmented Neutrophils % 79.2 %; White Blood Count 13.2 K/mcL (4.3-11.1)
[2020-12-18 00:08] LABS: BUN/Creatinine Ratio 10 (6-26); Blood Urea Nitrogen 11 mg/dL (6-20); Carbon Dioxide 24 mEq/L (23-29); Chloride 107 mEq/L (98-107); Glucose 109 mg/dL (70-105); Osmolality,Calculated 286 (280-300); Potassium 4.1 mEq/L (3.5-5.1); Sodium 138 mEq/L (136-145); eGFR For African Americans > 60 (> 60); eGFR For Non-African Americans 56 (> 60)
[2020-12-18 00:10] LABS: Troponin I < 0.03 ng/mL (< 0.04)
[2020-12-18] MEDS ORDERED: Azithromycin 500 MG in 0.9 % Sodium Chloride 250 ML IVPB ONE (00:20)
[2020-12-18] MEDS ORDERED: cefTRIAXone 1,000 MG in 0.9 % Sodium Chloride Mini Bag 100 ML IVPB ONE (00:20)
[2020-12-18] MEDS ORDERED: Ondansetron ODT 4 MG TAB.RAPDIS SL PRN (02:22)
[2020-12-18] MEDS ORDERED: Naloxone 0.4 MG/ML INJ IVP PRN (02:22)
[2020-12-18] MEDS ORDERED: Perflutren Lipid Microsphere 1.3 ML in 0.9 % Sodium Chloride 8.7 ML IVP PRN ×2 (02:25→09:22)
[2020-12-18] MEDS ORDERED: Furosemide 20 MG/2 ML VIAL IVP ONE (02:43)
[2020-12-18 04:03] LABS: Hematocrit 34.5 % (35.3-44.9); Hemoglobin 11.8 g/dL (11.5-15.4); Mean Corpuscular HGB Conc 34.2 g/dL (31.6-35.5); Mean Corpuscular Hemoglobin 31.6 pg (28.0-33.3); Mean Corpuscular Volume 92.2 fL (83.0-100.0); Platelet Count 251 K/mcL (140-400); Red Blood Count 3.74 M/mcL (3.82-4.97); Red Cell Distribution Width 15.2 % (11.5-14.5); White Blood Count 12.1 K/mcL (4.3-11.1)
[2020-12-18 04:16] LABS: INR 1.1; Prothrombin Time 12.4 Seconds (9.4-12.1)
[2020-12-18 04:19] LABS: Activated Partial Thrombo Time 25.4 Seconds (26.0-36.0)
[2020-12-18 04:35] LABS: Alanine Aminotransferase 13 Units/L (7-52); Albumin 3.5 g/dL (3.5-5.7); Albumin/Globulin Ratio 1.4 (1.1-2.2); Alkaline Phosphatase 62 Units/L (34-104); Aspartate Amino Transferase 12 Units/L (13-39); BUN/Creatinine Ratio 12 (6-26); Bilirubin,Total 0.3 mg/dL (0.3-1.0); Blood Urea Nitrogen 12 mg/dL (6-20); Calcium 8.9 mg/dL (8.6-10.3); Carbon Dioxide 21 mEq/L (23-29); Chloride 107 mEq/L (98-107); Globulin 2.5 g/dL (2.4-3.5); Glucose 101 mg/dL (70-105); Magnesium 1.7 mg/dL (1.6-2.6); Osmolality,Calculated 284 (280-300); Phosphorous 3.3 mg/dL (2.7-4.5); Potassium 4.1 mEq/L (3.5-5.1); Sodium 137 mEq/L (136-145); eGFR For African Americans > 60 (> 60); eGFR For Non-African Americans 59 (> 60)
[2020-12-18] MEDS: *HR* Enoxaparin 40 MG/0.4 ML SYRINGE SQ SCH (05:01)
[2020-12-18] MEDS: Furosemide 20 MG/2 ML VIAL IVP SCH (10:18)
[2020-12-18] MEDS ORDERED: *HR* LORazepam 2 MG/ML VIAL IVP ONE (23:37)
[2020-12-18] MEDS ORDERED: hydrOXYzine pamoate 25 MG CAPSULE PO ONE (23:43)
[2020-12-18] MEDS ORDERED: Melatonin 3 MG TABLET PO STA (23:43)
[2020-12-19 03:58] LABS: BUN/Creatinine Ratio 18 (6-26); Blood Urea Nitrogen 21 mg/dL (6-20); Carbon Dioxide 22 mEq/L (23-29); Chloride 103 mEq/L (98-107); Glucose 113 mg/dL (70-105); Osmolality,Calculated 282 (280-300); Potassium 4.4 mEq/L (3.5-5.1); Sodium 134 mEq/L (136-145); eGFR For African Americans > 60 (> 60); eGFR For Non-African Americans 53 (> 60)
[2020-12-19 05:23] LABS: Basophils # 0.1 K/mcL (0.0-0.2); Basophils % 0.6 %; Eosinophils # 0.3 K/mcL (0.0-0.6); Eosinophils % 2.3 %; Hematocrit 41.4 % (35.3-44.9); Hemoglobin 14.3 g/dL (11.5-15.4); Immature Granulocytes % 0.5 % (0-4); Lymphocytes # 1.8 K/mcL (0.6-4.6); Lymphocytes % 16.1 %; Mean Corpuscular HGB Conc 34.5 g/dL (31.6-35.5); Mean Corpuscular Hemoglobin 31.4 pg (28.0-33.3); Mean Platelet Volume 10.4 fL (9.4-12.4); Monocytes # 0.6 K/mcL (0.0-1.3); Monocytes % 5.2 %; Neutrophils # 8.2 K/mcL (1.6-8.9); Platelet Count 361 K/mcL (140-400); Red Blood Count 4.55 M/mcL (3.82-4.97); Segmented Neutrophils % 75.3 %; White Blood Count 10.9 K/mcL (4.3-11.1)
[2020-12-19] MEDS: *HR* Enoxaparin 40 MG/0.4 ML SYRINGE SQ SCH (06:03)
[2020-12-19] MEDS ORDERED: hydrOXYzine pamoate 25 MG CAPSULE PO PRN (07:48)
[2020-12-19] MEDS: Furosemide 20 MG/2 ML VIAL IVP SCH (09:14)
[2020-12-19 11:23] VITALS: BP 123/72
[2020-12-19] MEDS ORDERED: Metoprolol XL (24 HR) Succ 25 MG TAB.ER.24H PO SCH (12:15)
[2020-12-19] MEDS ORDERED: FLU Vac QV 20-21 (6Month+)/PF 0.5 ML SYRINGE IM ONE (12:34)
== END 2020-12-19 13:21 | disposition home or self-care (01) ==
LOC: EMEROOARM 22:31 → 2NENU 22:31 → SUATTDRO 12-18 01:31 → 2NENU 12-18 01:58
PROVIDERS: ADMIT Family Medicine; ATTEND Student in an Organized Health Care Education/Training Program

== ENCOUNTER 2021-10-05 17:02 | Observation (INO) ==
[2021-10-05] MEDS ORDERED: 0.9 % Sodium Chloride 1,000 ML IVC ONE (17:23)
[2021-10-05] MEDS ORDERED: Isovue-370 500 ML BOTTLE IVP ONE ×2 (17:29→23:27)
[2021-10-05 17:32] LABS: Basophils % 0.3 %; Eosinophils % 0.1 %; Hematocrit 29.7 % (35.3-44.9); Hemoglobin 9.1 g/dL (11.5-15.4); Immature Granulocytes % 1.3 % (0-4); Lymphocytes # 1.4 K/mcL (0.6-4.6); Lymphocytes % 10.2 %; Mean Corpuscular HGB Conc 30.6 g/dL (31.6-35.5); Mean Corpuscular Hemoglobin 27.7 pg (28.0-33.3); Mean Corpuscular Volume 90.5 fL (83.0-100.0); Mean Platelet Volume 9.9 fL (9.4-12.4); Monocytes # 0.4 K/mcL (0.0-1.3); Monocytes % 2.6 %; Neutrophils # 11.6 K/mcL (1.6-8.9); Platelet Count 258 K/mcL (140-400); Red Blood Count 3.28 M/mcL (3.82-4.97); Red Cell Distribution Width 16.8 % (11.5-14.5); Segmented Neutrophils % 85.5 %; White Blood Count 13.5 K/mcL (4.3-11.1)
[2021-10-05 17:40] LABS: INR 1.3
[2021-10-05 17:43] LABS: Activated Partial Thrombo Time 25.6 Seconds (26.0-36.0)
[2021-10-05 17:54] LABS: Alanine Aminotransferase 26 Units/L (7-52); Albumin 3.1 g/dL (3.5-5.7); Albumin/Globulin Ratio 1.1 (1.1-2.2); Alkaline Phosphatase 98 Units/L (34-104); Aspartate Amino Transferase 21 Units/L (13-39); BUN/Creatinine Ratio 13 (6-26); Bilirubin,Direct 0.2 mg/dL (0.0-0.2); Bilirubin,Indirect 0.7 mg/dL (0.0-1.0); Bilirubin,Total 0.9 mg/dL (0.3-1.0); Blood Urea Nitrogen 14 mg/dL (6-20); Calcium 8.4 mg/dL (8.6-10.3); Carbon Dioxide 20 mEq/L (23-29); Chloride 108 mEq/L (98-107); Ethanol < 10 mg/dL (Less than 10); Globulin 2.9 g/dL (2.4-3.5); Glucose 110 mg/dL (70-105); Osmolality,Calculated 283 (280-300); Potassium 4.3 mEq/L (3.5-5.1); Sodium 136 mEq/L (136-145); Troponin I 0.13 ng/mL (< 0.04); eGFR For African Americans > 60 (> 60); eGFR For Non-African Americans 55 (> 60)
[2021-10-05 19:18] LABS: Bilirubin,Urine Negative (Negative); Blood,Urine Negative (Negative); Clarity,Urine Clear (Clear); Color,Urine Yellow (Yellow); Glucose,Urine (UA) Normal (Normal); Hyaline Casts,Urine Few per lpf (None Seen); Ketones,Urine Negative (Negative); Leukocyte Esterase,Urine Negative (Negative); Mucus,Urine Few per lpf (None-Few); Nitrite,Urine Negative (Negative); Protein,Urine 50 mg/dL (Neg-Trace); Specific Gravity,Urine > 1.030 (1.010-1.025); Squamous Epithelial Cell,Urine Moderate per hpf (None-Few); WBC,Urine 0-3 per hpf (0-3)
[2021-10-05 19:29] LABS: Amphetamine Screen,Urine Positive ng/mL (Cutoff=1000); Barbiturate Screen,Urine Negative ng/mL (Cutoff=200); Benzodiazepines Screen,Urine Negative ng/mL (Cutoff=200); Cannabinoid Screen,Urine Negative ng/mL (Cutoff = 50); Cocaine Screen,Urine Negative ng/mL (Cutoff= 300); Opiate Screen,Urine Negative ng/mL (Cutoff=300); Phencyclidine Screen,Urine Negative ng/mL (Cutoff=25)
[2021-10-05] MEDS ORDERED: Naloxone 0.4 MG/ML INJ IVP PRN (21:16)
[2021-10-05] MEDS ORDERED: Ipratropium Neb 0.5 MG NEBULIZER IH SCH (22:00)
[2021-10-05] MEDS ORDERED: Levalbuterol Neb 1.25 MG/3 ML IH SCH (22:00)
[2021-10-05 22:22] LABS: Adenovirus Not Detected (Not Detect); Bordetella Pertussis Not Detected (Not Detect); Chlamydophila pneumoniae Not Detected (Not Detect); Coronavirus 229E Not Detected (Not Detect); Coronavirus HKU1 Not Detected (Not Detect); Coronavirus NL63 Not Detected (Not Detect); Coronavirus OC43 Not Detected (Not Detect); Human Metapneumovirus Not Detected (Not Detect); Human Rhinovirus/Enterovirus Not Detected (Not Detect); Influenza A Subtype 2009 H1 Not Detected (Not Detect); Influenza B Not Detected (Not Detect); Mycoplasma pneumoniae Not Detected (Not Detect); Parainfluenza Virus 1 Not Detected (Not Detect); Parainfluenza Virus 2 Not Detected (Not Detect); Parainfluenza Virus 3 Not Detected (Not Detect); Parainfluenza Virus 4 Not Detected (Not Detect); Respiratory Syncytial Virus Not Detected (Not Detect); SARS-CoV-2 Not Detected (Not Detect)
[2021-10-05] MEDS ORDERED: *HR* Heparin 5,000 UNIT/ML VIAL IVP PRN ×2 (22:41)
[2021-10-05] MEDS ORDERED: *HR* Heparin 5,000 UNIT/ML VIAL IVP ONE (22:41)
[2021-10-05] MEDS ORDERED: cefTRIAXone 1,000 MG in Water for inj. (sterile) 10 ML IVP ONE (22:43)
[2021-10-05] MEDS ORDERED: Azithromycin 500 MG in 0.9 % Sodium Chloride 250 ML IVPB ONE (22:43)
[2021-10-05] MEDS ORDERED: methylPREDNISolone 125 MG/2 ML VIAL IVP ONE (22:43)
[2021-10-05] MEDS ORDERED: Heparin 25,000UNIT/250ML 1/2NS 25,000 UNIT/250 ML IV.SOLN IVC SCH (22:45)
[2021-10-05] MEDS ORDERED: Perflutren Lipid Microsphere 1.3 ML in 0.9 % Sodium Chloride 8.7 ML IVP PRN (22:46)
[2021-10-05 23:09] VITALS: BP 125/88; PULSE 106; TEMP 100.6; O2SAT 95
[2021-10-05 23:26] LABS: ABG Base Excess -4 mEq/L (-2 to 3); ABG HCO3 18 mEq/L (21-27); ABG Oxygen Saturation 90 % (95-98); ABG PCO2 21 mmHg (35-45); ABG PH 7.54 pH Units (7.32-7.45); ABG PO2 50 mmHg (85-104); ABG TCO2 19 mEq/L (20-26)
[2021-10-05] MEDS ORDERED: *HR* LORazepam 2 MG/ML VIAL IVP ONE (23:42)
[2021-10-05] MEDS ORDERED: Nicotine 21 MG PATCH.TD24 TD SCH (23:45)
[2021-10-05] MEDS ORDERED: Furosemide 40 MG/4 ML VIAL IVP ONE (23:47)
[2021-10-06] MEDS ORDERED: cefTRIAXone 1,000 MG in Water for inj. (sterile) 10 ML IVP SCH (09:00)
[2021-10-06 18:39] LABS: Acinetobacter baumannii by PCR Not Detected (Not Detect); Enterobacter cloacae Cmplx PCR Not Detected (Not Detect); Enterobacteriaceae by PCR Not Detected (Not Detect); Enterococcus by PCR Not Detected (Not Detect); Escherichia coli by PCR Not Detected (Not Detect); Klebsiella oxytoca by PCR Not Detected (Not Detect); Klebsiella pneumoniae by PCR Not Detected (Not Detect); Proteus by PCR Not Detected (Not Detect); Pseudomonas aeruginosa by PCR Not Detected (Not Detect); Serratia marcescens by PCR Not Detected (Not Detect); Staphylococcus aureus by PCR Not Detected (Not Detect); Staphylococcus by PCR Not Detected (Not Detect); Streptococcus agalactiae(B)PCR Not Detected (Not Detect); Streptococcus by PCR DETECTED (Not Detect); Streptococcus pneumoniae PCR Not Detected (Not Detect); Streptococcus pyogenes (A) PCR Not Detected (Not Detect)
[2021-10-06 18:40] LABS: Candida albicans by PCR Not Detected (Not Detect); Candida glabrata by PCR Not Detected (Not Detect); Candida krusei by PCR Not Detected (Not Detect); Candida parapsilosis by PCR Not Detected (Not Detect); Candida tropicalis by PCR Not Detected (Not Detect)
[2021-10-06] MEDS ORDERED: Azithromycin 500 MG in 0.9 % Sodium Chloride 250 ML IVPB SCH (23:00)
== END 2021-10-06 02:26 | disposition short-term general hospital (02) ==
LOC: EMEROOARM 17:02 → 3BNU 17:02
PROVIDERS: ADMIT Internal Medicine; ATTEND Internal Medicine